=== PATIENT | female | born 1960 | race Caucasian/White ===

== ENCOUNTER → 2018-12-08 | Outpatient (CLI) | payer OTHER ==
[2018-12-10 15:07] LABS: HPV 16 Negative (Negative); HPV 18 Negative (Negative); HPV OTHER HR TYPES Negative (Negative)
== END | disposition home or self-care (01) ==
LOC: LAB 19:37 → LAB SHORT 19:37
PROVIDERS: Physician Assistant
DX: Z12.4 Encounter for screening for malignant neoplasm of cervix (principal)
CPT/HCPCS: 87624; G0145

== ENCOUNTER 2019-01-30 08:06 | Day surgery (SDC) | payer OTHER | END 2019-01-30 23:01 | disposition home or self-care (01) | LOC: MOI US 08:06 → MOI MAM 08:30 → MOI US 23:01 | DX: C50.911 Malignant neoplasm of unspecified site of right female breast (principal); Z17.0 Estrogen receptor positive status [ER+] | CPT/HCPCS: 19083; 77065; 88305; 88342; 88360; A4648 ==

== ENCOUNTER 2019-09-20 18:47 | Emergency (ER) | payer OTHER ==
[~2019-09-20] VITALS: Ht 167.6 cm; Wt 78.9 kg
[~2019-09-20 18:47] MED LIST: ADVIL100 MG PO; ATOR10 PO; Advil Pm Liqui1 EACH PO; BIOTIN2500 MCG PO; CENTRUM SILVER PO; CHOL10002 PO; MELO7.5 PO; MYRBETRIQ25 MG PO; Neurontin 300300 MG PO; OMEPRAZOLE20 MG PO; Prozac20 MG PO; VITAMIN B122500 MC1 PO
[2019-09-20] MEDS ORDERED: Crutch1 EACH MISC (20:05)
[2019-09-20] MEDS ORDERED: Norco 5-325 Ta1 EACH PO (20:05)
== END 2019-09-20 20:25 | disposition home or self-care (01) ==
LOC: ER 18:47
DX: S80.01XA Contusion of right knee, initial encounter (principal); K21.9 Gastro-esophageal reflux disease without esophagitis; E78.5 Hyperlipidemia, unspecified; Z88.2 Allergy status to sulfonamides; Z79.899 Other long term (current) drug therapy; Z87.891 Personal history of nicotine dependence; W18.40XA Slipping, tripping and stumbling without falling, unspecified, initial encounter
CPT/HCPCS: 29505; 73562-RT; 99283-25

== ENCOUNTER 2020-07-27 22:07 | Emergency (ER) | payer OTHER ==
[~2020-07-27] VITALS: Ht 167.6 cm; Wt 74.4 kg
[~2020-07-27 22:07] MED LIST changes: +Crutch1 EACH MISC; +Norco 5-325 Ta1 EACH PO
[2020-07-27 23:41] LABS: BASOPHILS ABSOLUTE AUTO 0.05 K/mm3 (0.00-0.23); BASOPHILS PERCENT AUTO 0 % (0-2); EOSINOPHILS ABSOLUTE AUTO 0.11 K/mm3 (0.00-0.68); EOSINOPHILS PERCENT AUTO 1 % (0-6); Hematocrit 39.1 % (33.0-51.0); IMMATURE GRAN ABSOLUTE AUTO 0.08 K/mm3 (0.00-0.10); IMMATURE GRAN PERCENT AUTO 1 % (0-1); LYMPHOCYTES ABSOLUTE AUTO 1.44 K/mm3 (0.84-5.20); LYMPHOCYTES PERCENT AUTO 11 % (21-46); MONOCYTES ABSOLUTE AUTO 1.47 K/mm3 (0.16-1.47); MONOCYTES PERCENT AUTO 11 % (4-13); Mean Corpuscular HGB 29.1 pg (26.0-34.0); Mean Corpuscular HGB Conc 33.2 g/dL (31.5-36.5); Mean Corpuscular Volume 88 fL (80-100); Mean Platelet Volume 9.6 fL (9.1-12.4); NEUTROPHILS ABSOLUTE AUTO 10.46 K/mm3 (1.96-9.15); NEUTROPHILS PERCENT AUTO 77 % (41-73); Platelet Count 261 K/mm3 (150-400); RDW Coefficient Variation 12.3 % (11.7-14.2); RDW Standard Deviation 39.6 fL (35.1-46.3); Red Blood Cell Count 4.47 M/mm3 (3.80-5.20); White Blood Cell Count 13.61 K/mm3 (4.00-11.30)
[2020-07-28 00:08] LABS: Alanine Aminotransfer (ALT/SGP 19 U/L (12-78); Albumin, Blood 3.1 g/dL (3.4-5.0); Albumin/Globulin Ratio 0.7 (0.8-1.8); Alk Phos 100 U/L (50-136); Anion Gap 11 mmol/L (6-16); Aspartate Aminotrans (AST/SGOT 11 U/L (12-37); Bilirubin, Total 0.5 mg/dL (0.1-1.0); Blood Urea Nitrogen 11 mg/dL (8-24); CO2, Blood 24 mmol/L (21-32); Calcium, Blood 9.5 mg/dL (8.5-10.1); Chloride, Blood 98 mmol/L (98-108); Globulin, Blood 4.7 g/dL (2.2-4.0); Glomerular Filtration Rate >60 (60-); Glucose, Blood 99 mg/dL (70-99); Potassium, Blood 3.3 mmol/L (3.5-5.5); Sodium, Blood 133 mmol/L (136-145); Total Protein, Blood 7.8 g/dL (6.4-8.2)
== END 2020-07-28 01:16 | disposition home or self-care (01) ==
LOC: ER 22:07
PROVIDERS: Emergency Medicine
DX: G89.18 Other acute postprocedural pain (principal); M79.605 Pain in left leg; R20.0 Anesthesia of skin; R20.2 Paresthesia of skin; K21.9 Gastro-esophageal reflux disease without esophagitis; E78.5 Hyperlipidemia, unspecified; Z88.2 Allergy status to sulfonamides; Z79.899 Other long term (current) drug therapy; Z87.891 Personal history of nicotine dependence
CPT/HCPCS: 36415; 80053; 83605; 85025; 96374; 96375; 96376; 99283-25; J1100; J1170; J2405

== ENCOUNTER 2020-08-04 11:16 | Inpatient (IN) | payer OTHER ==
[~2020-08-04] VITALS: Ht 167.6 cm; Wt 75.5 kg
[~2020-08-04 11:16] MED LIST changes: -ATOR10 PO; +ATOR20 PO; -CENTRUM SILVER PO; +GABA300 PO; +MULTI VITAMIN1 EACH PO; -Neurontin 300300 MG PO
[2020-08-04 12:27] LABS: BASOPHILS ABSOLUTE AUTO 0.07 K/mm3 (0.00-0.23); BASOPHILS PERCENT AUTO 1 % (0-2); EOSINOPHILS ABSOLUTE AUTO 0.02 K/mm3 (0.00-0.68); EOSINOPHILS PERCENT AUTO 0 % (0-6); Hematocrit 35.6 % (33.0-51.0); Hemoglobin 11.6 g/dL (11.5-16.0); IMMATURE GRAN PERCENT AUTO 3 % (0-1); LYMPHOCYTES ABSOLUTE AUTO 0.99 K/mm3 (0.84-5.20); LYMPHOCYTES PERCENT AUTO 10 % (21-46); MONOCYTES ABSOLUTE AUTO 0.52 K/mm3 (0.16-1.47); MONOCYTES PERCENT AUTO 5 % (4-13); Mean Corpuscular HGB 28.9 pg (26.0-34.0); Mean Corpuscular HGB Conc 32.6 g/dL (31.5-36.5); Mean Corpuscular Volume 89 fL (80-100); NEUTROPHILS PERCENT AUTO 81 % (41-73); RDW Standard Deviation 42.5 fL (35.1-46.3); Red Blood Cell Count 4.01 M/mm3 (3.80-5.20)
[2020-08-04 12:38] LABS: Mean Platelet Volume 8.8 fL (9.1-12.4); Platelet Count 502 K/mm3 (150-400)
[2020-08-04 12:49] LABS: Alanine Aminotransfer (ALT/SGP 26 U/L (12-78); Albumin/Globulin Ratio 0.7 (0.8-1.8); Alk Phos 98 U/L (50-136); Anion Gap 8 mmol/L (6-16); Aspartate Aminotrans (AST/SGOT 22 U/L (12-37); Bilirubin, Total 0.3 mg/dL (0.1-1.0); Blood Urea Nitrogen 14 mg/dL (8-24); CO2, Blood 25 mmol/L (21-32); Calcium, Blood 9.5 mg/dL (8.5-10.1); Chloride, Blood 108 mmol/L (98-108); Creatinine, Blood 0.45 mg/dL (0.40-1.00); Globulin, Blood 4.2 g/dL (2.2-4.0); Glomerular Filtration Rate >60 (60-); Glucose, Blood 129 mg/dL (70-99); Potassium, Blood 3.3 mmol/L (3.5-5.5); Sodium, Blood 141 mmol/L (136-145); Total Protein, Blood 7.2 g/dL (6.4-8.2)
[2020-08-04] MEDS ORDERED: ANAS1 PO (16:21)
[2020-08-04] MEDS ORDERED: VITAMIN D5000 UNIT PO (16:23)
[2020-08-04] MEDS ORDERED: CALCIUM CARBON650 MG PO (16:23)
[2020-08-04] MEDS ORDERED: CYAN1000I IM (16:23)
--- NOTE | 2020-08-04 18:43 | NUR ---
182 RECEIVED PT TO 343 VIA GURNEY FROM ER. SLIDE TX TO BED D/T ABD PAIN AND NAUSEA. RECEIVED REPORT FROM JOSSELYN XIE; PT TO ER D/T INTRACTABLE N/V. PT FOUND TO HAVE LLE DVT, ILEUS, AND HYPOKALEMIA. PT HAD RECENT BACK SX 2 WEEKS AGO. PT GIVEN IV FENTANYL AND ZOFRAN X2 IN ER. PT LATER GIVEN REGLAN WHICH WAS REPORTED TO BE MORE EFFECTIVE FOR NAUSEA. CT OF ABD ORDERED IN ER. PT GIVEN PO VALIUM FOR TEST, BUT REPORTED THAT SHE VOMITED IT UP. PT THEN REFUSED TO HAVE CT. JOSSELYN XIE, UNABLE TO GIVE REGLAN AGAIN AT THAT TIME IN ORDER TO ADMIN ANOTHER VALIUM. PT THEN SENT TO FLOOR. PHARMACY CALLED FOR PT WT, PRIOR TO PT COMING TO . WT DOCUMENTED IN CHART WHEN PT ARRIVED. PT MOANING ALL THE TIME WHILE BEING ADMITTED; NOW RESTING QUIETLY ON RT SIDE WITH IVF'S INFUSING PER EMAR. CALL LT IN REACH. WILL REPORT TO ONCOMING RN. THIS TIME
[2020-08-04 19:37] LABS: Source, Urine Clean Catch
[2020-08-04 19:42] LABS: Appearance, Urine Clear (Clear); Bilirubin, Urine Neg (Neg); Blood, Urine 3+ (Neg); Color, Urine Yellow (P-Yellow); Glucose Qualitative, Urine Neg (Neg); Ketones, Urine 1+ (Neg); Leukocyte Esterase, Urine Neg (Neg); Nitrite, Urine Neg (Neg); Protein, Urine Neg (Neg); Urobilinogen, Urine NORM (Normal)
[2020-08-04 20:09] LABS: Bacteria Not Seen /hpf; Squamous Epithelial Cells Few /hpf (Few); White Blood Cells, Urine Not Seen /hpf (0-5)
--- NOTE | 2020-08-05 03:02 | NUR ---
PHYSICIAN COMMUNICATION CONTACTED MANAGER RN PHYSICIAN, DR GROSS, TO NOTIFY HIM THAT THE PATIENT HAD AN ORDER FOR 10MG IV Q4 PRN BUT THAT THE ADMITING DOCTOR HAD NOTED IN THE H&P THAT SHE HAD INTENDED FOR THE PATIENT TO BE ORDERED 4 MG OF MORPHINE Q4 HOURS INSTEAD. DR GROSS SAID TO CHANGE THE ORDER TO THE INTENDED DOSAGE.
[2020-08-05 05:14] LABS: BASOPHILS ABSOLUTE AUTO 0.07 K/mm3 (0.00-0.23); BASOPHILS PERCENT AUTO 1 % (0-2); EOSINOPHILS ABSOLUTE AUTO 0.05 K/mm3 (0.00-0.68); EOSINOPHILS PERCENT AUTO 0 % (0-6); Hematocrit 32.2 % (33.0-51.0); Hemoglobin 10.4 g/dL (11.5-16.0); IMMATURE GRAN ABSOLUTE AUTO 0.21 K/mm3 (0.00-0.10); IMMATURE GRAN PERCENT AUTO 2 % (0-1); LYMPHOCYTES ABSOLUTE AUTO 1.72 K/mm3 (0.84-5.20); LYMPHOCYTES PERCENT AUTO 15 % (21-46); MONOCYTES PERCENT AUTO 9 % (4-13); Mean Corpuscular HGB 28.9 pg (26.0-34.0); Mean Corpuscular HGB Conc 32.3 g/dL (31.5-36.5); Mean Corpuscular Volume 89 fL (80-100); Mean Platelet Volume 8.4 fL (9.1-12.4); NEUTROPHILS ABSOLUTE AUTO 8.64 K/mm3 (1.96-9.15); NEUTROPHILS PERCENT AUTO 73 % (41-73); Platelet Count 486 K/mm3 (150-400); RDW Coefficient Variation 13.5 % (11.7-14.2); White Blood Cell Count 11.79 K/mm3 (4.00-11.30)
[2020-08-05 05:38] LABS: Alanine Aminotransfer (ALT/SGP 22 U/L (12-78); Albumin, Blood 2.8 g/dL (3.4-5.0); Albumin/Globulin Ratio 0.8 (0.8-1.8); Alk Phos 85 U/L (50-136); Anion Gap 5 mmol/L (6-16); Aspartate Aminotrans (AST/SGOT 17 U/L (12-37); Bilirubin, Total 0.2 mg/dL (0.1-1.0); Blood Urea Nitrogen 7 mg/dL (8-24); Bun/Creatinine Ratio 16.2 (12.0-20.0); CO2, Blood 27 mmol/L (21-32); Chloride, Blood 110 mmol/L (98-108); Creatinine, Blood 0.43 mg/dL (0.40-1.00); Globulin, Blood 3.5 g/dL (2.2-4.0); Glomerular Filtration Rate >60 (60-); Glucose, Blood 115 mg/dL (70-99); Potassium, Blood 3.2 mmol/L (3.5-5.5); Sodium, Blood 142 mmol/L (136-145); Total Protein, Blood 6.3 g/dL (6.4-8.2)
--- NOTE | 2020-08-05 06:37 | NUR ---
SHIFT SUMMARY PATIENT ALERT AND ORIENTED. SHE SPOKE AND INTERACTED VERY LITTLE WITH STAFF DUE TO THE LEVEL OF NAUSEA AND PAIN SHE WAS FEELING. PATIENT MEDICATED THREE TIMES FOR NAUSEA AND TWICE FOR PAIN PER EMAR. SHE REPORTED HAVING A HEADACHE AND STOMACH PAIN. BOWEL TONES PRESENT, JUST HYPOACTIVE. IV PATENT AND INFUSING. BED IN LOWEST POSITION WITH WHEELS LOCKED. CALL LIGHT WITHIN REACH. REPORT GIVEN TO ONCOMING RN.
--- NOTE | 2020-08-05 12:13 | NUR ---
PT MEDICATED FOR C/O NAUSEA. LATER PT C/O BLANCAS. DECLINED TYLENOL TO PRESENT. REQUESTED IV MORPHINE. PT REPORTED BLANCAS POSSIBLY R/T CAFFEINE W/D. PT VOIDING WELL, UP TO BSC INDEPENDENTLY. TO RM THIS AM. REQUESTED INFO R/T REORDERING CT SCAN THAT PT HAD REFUSED LAST NIGHT. DR HERNÁNDEZ NOTIFIED AND CAME TO RM TO TALK WITH PT AND . NEW ORDERS PLACED. PT RESTING QUIETLY, AT BS. CALL LT IN REACH.
[2020-08-05 17:41] LABS: Prothrombin Time Results 10.7 Sec (9.7-11.5)
--- NOTE | 2020-08-05 19:21 | NUR ---
SHIFT SUMMARY PT DOWN FOR CT OF ABD AND PELVIC; TOLERATED WELL. DR HERNÁNDEZ NOTIFIED OF CT COMPLETION. NEW ORDERS PLACED. CONSULT CALLED TO DR Williamson BY THIS RN. DR HERNÁNDEZ LATER CALLED TO CHECK ON CONSULT; UPDATE GIVEN THAT DR Williamson WAS ON HIS WAY DOWN FROM [place] TO SEE PT AND POSSIBLY DO PROCEDURE, PER RAFI XIE FROM [facility]. RAPID COVID ORDERED AND OBTAINED. PHARMACY CONSULT ORDERED TO START HEPARIN DRIP. PT INFORMED OF CONSULT AND POSSIBLE PROCEDURE. DR Williamson IN TO SEE PT AND DISCUSS PROCEDURE AFTER REVIEWING CT AND US RESULTS. PT AND AGREEABLE TO PROCEDURE. HEPARIN BOLUS ADMINISTERED AND DRIP STARTED PER PHARMACY. TO BE NOTIFIED WHEN PT GOING DOWN FOR PROCEDURE, BY ALLY RN. PT UP TO BSC WITH SBA R/T LINES. PT C/O ACID REFLUX DURING SHIFT REPORT; TO BE MEDICATED BY NOC RN. REPORT GIVEN TO ONCOMING RN. CALL LT IN REACH.
--- NOTE | 2020-08-05 20:37 | NUR ---
PT LEFT FLOOR ASSUMED CARE OF PT AT 1900. PT RECEIVED NEASEA MEDICINE. HEPRIN INFUSING. MOTORCYCLE MAKER CAME TO GET PT AT 2022. PT EDUCATED ON PROCEDURE. OF PT OMAR NOTIFED OF PT LEAVING. NUMBER IS [phone] AND WOULD LIKE TO BE CALLED AFTER PROCEDURE. EDUCATED ABOUT PT GOING TO PCU AFTER PROCEDURE.
--- NOTE | 2020-08-06 04:36 | NUR ---
SUMMARY CALLED AND RECIEVED REPORT FROM CARLOS XIE BEFORE GETTING PT FROM [facility]. RECIEVED PATIENT FROM [facility] @ 2219 REPORT FROM MONSE XIE. NO BLEEDING NOTICED AT FEMORAL OR POPLITEAL SITES. ALL SENSATION INTACT IN BLEs. PT LOG ROLLED ONTO BEDPAN. PT URINE BLOODY, HOSPITALIST NOTIFIED AND DR. RAMEY CONTACTED AT 2244 BY HOSPITALIST WHO REPORTED THIS WAS NORMAL. HOSPITALIST ALSO NOTIFIED OF PATIENT NAUSEA AND ORDER RECIEVED AND PT MEDICATED, SEE EMAR. CONTACTED PHARMACY AT 2251 TO CONFIRM AND RESTART HEPARIN. PT REPORTED 10/10 ABDOMINAL PAIN WHEN SHE ARRIVED FROM [facility], REPOSITIONED, HEAT PAD APPLIED, AND MEDICATED, SEE EMAR. PT 02 SATS IN THE UPPER 80s, PUT PATIENT ON 2L NC AND 02 IS NOW >95%. PT IS INCONTINENT AT TIMES. CALL LIGHT IN REACH, BED IN LOW POSITION. WILL CONTINUE TO MONITOR.
[2020-08-06 06:49] LABS: BASOPHILS ABSOLUTE AUTO 0.09 K/mm3 (0.00-0.23); BASOPHILS PERCENT AUTO 1 % (0-2); EOSINOPHILS ABSOLUTE AUTO 0.03 K/mm3 (0.00-0.68); EOSINOPHILS PERCENT AUTO 0 % (0-6); Hematocrit 33.4 % (33.0-51.0); Hemoglobin 10.9 g/dL (11.5-16.0); IMMATURE GRAN ABSOLUTE AUTO 0.14 K/mm3 (0.00-0.10); IMMATURE GRAN PERCENT AUTO 1 % (0-1); LYMPHOCYTES ABSOLUTE AUTO 2.01 K/mm3 (0.84-5.20); LYMPHOCYTES PERCENT AUTO 19 % (21-46); MONOCYTES ABSOLUTE AUTO 1.08 K/mm3 (0.16-1.47); MONOCYTES PERCENT AUTO 10 % (4-13); Mean Corpuscular HGB 29.1 pg (26.0-34.0); Mean Corpuscular HGB Conc 32.6 g/dL (31.5-36.5); Mean Corpuscular Volume 89 fL (80-100); Mean Platelet Volume 8.5 fL (9.1-12.4); NEUTROPHILS PERCENT AUTO 69 % (41-73); Platelet Count 419 K/mm3 (150-400); RDW Coefficient Variation 13.5 % (11.7-14.2); Red Blood Cell Count 3.75 M/mm3 (3.80-5.20); White Blood Cell Count 10.85 K/mm3 (4.00-11.30)
[2020-08-06 07:08] LABS: Alanine Aminotransfer (ALT/SGP 25 U/L (12-78); Albumin, Blood 2.9 g/dL (3.4-5.0); Albumin/Globulin Ratio 0.7 (0.8-1.8); Alk Phos 86 U/L (50-136); Anion Gap 8 mmol/L (6-16); Aspartate Aminotrans (AST/SGOT 37 U/L (12-37); Bilirubin, Total 0.5 mg/dL (0.1-1.0); Blood Urea Nitrogen 5 mg/dL (8-24); Bun/Creatinine Ratio 10.6 (12.0-20.0); CO2, Blood 29 mmol/L (21-32); Calcium, Blood 9.4 mg/dL (8.5-10.1); Chloride, Blood 102 mmol/L (98-108); Creatinine, Blood 0.47 mg/dL (0.40-1.00); Globulin, Blood 3.9 g/dL (2.2-4.0); Glomerular Filtration Rate >60 (60-); Glucose, Blood 113 mg/dL (70-99); Potassium, Blood 3.1 mmol/L (3.5-5.5); Sodium, Blood 139 mmol/L (136-145); Total Protein, Blood 6.8 g/dL (6.4-8.2)
--- NOTE | 2020-08-06 17:16 | NUR ---
SHIFT SUMMARY PT AXO, PLEASANT AND COOPERATIVE WITH CARE. PT MEDICATED FOR PAIN PER EMAR. TEMP 99.9, NURSE TO GIVE PT TYLENOL PER EMAR WITH LAST MED PASS OF SHIFT. PT EMESIS AFTER MORNING MEDICATIONS X2. SPOUSE STATES THAT HE SAW PILLS IN EMESIS. PT REMAINS INCONTINENT, REQUIRING ATTENDS CHANGES FREQUENTLY. BED IN LOW POSITION, CALL LIGHT WITHIN REACH.
[2020-08-06] MEDS ORDERED: TYLENOL PM PO (19:20)
--- NOTE | 2020-08-07 01:33 | NUR ---
PATIENT IS ALERT, ORIENTED AND COOPERATIVE WITH CARE. SHE IS INCONTINENT AND A 1 PERSON ASSIT WITH CARE. PATIENT PAIN HAS BEEN MAINLY IN HER BACK AND I HAVE HAD NO REPORTS OF N/V THIS SHIFT. THE PATIENT SAT UP ON THE SIDE OF THE BED TO TAKE MEDICTION. TOLERATING CLEAR LIQUID DIET WELL. TAGADERM DRESSING ON FEMORAL AND POPLITEAL SITES DRY AND INTACT. VSS, NO ACUTE CHANGES. CALL LIGHT IN REACH, WILL CONTINUE TO MONITOR.
--- NOTE | 2020-08-07 06:00 | NUR ---
SUMMARY PATIENT SLEPT WELL AFTER TYLENOL PM, WOKE UP WITH 10/10 BACK PAIN, MEDICATED, SEE EMAR. PT INCONTINENT OF BLADDER, BRIEF CHANGED. TALKED TO PATIENT ABOUT TRYIGN TO USE BEDPAN OR BEDSIDE COMMODE. VSS, NO ACUTE CHANGED. WILL CONTINUE TO MONITOR.
[2020-08-07 06:01] LABS: BASOPHILS ABSOLUTE AUTO 0.08 K/mm3 (0.00-0.23); BASOPHILS PERCENT AUTO 1 % (0-2); EOSINOPHILS PERCENT AUTO 2 % (0-6); Hematocrit 33.4 % (33.0-51.0); Hemoglobin 10.6 g/dL (11.5-16.0); IMMATURE GRAN ABSOLUTE AUTO 0.12 K/mm3 (0.00-0.10); IMMATURE GRAN PERCENT AUTO 1 % (0-1); LYMPHOCYTES ABSOLUTE AUTO 2.62 K/mm3 (0.84-5.20); LYMPHOCYTES PERCENT AUTO 31 % (21-46); MONOCYTES ABSOLUTE AUTO 1.04 K/mm3 (0.16-1.47); MONOCYTES PERCENT AUTO 12 % (4-13); Mean Corpuscular HGB 28.8 pg (26.0-34.0); Mean Corpuscular HGB Conc 31.7 g/dL (31.5-36.5); Mean Corpuscular Volume 91 fL (80-100); Mean Platelet Volume 8.4 fL (9.1-12.4); NEUTROPHILS ABSOLUTE AUTO 4.39 K/mm3 (1.96-9.15); NEUTROPHILS PERCENT AUTO 52 % (41-73); Platelet Count 329 K/mm3 (150-400); RDW Coefficient Variation 13.6 % (11.7-14.2); RDW Standard Deviation 45.1 fL (35.1-46.3); Red Blood Cell Count 3.68 M/mm3 (3.80-5.20); White Blood Cell Count 8.45 K/mm3 (4.00-11.30)
[2020-08-07 06:25] LABS: Alanine Aminotransfer (ALT/SGP 19 U/L (12-78); Albumin, Blood 2.6 g/dL (3.4-5.0); Albumin/Globulin Ratio 0.7 (0.8-1.8); Alk Phos 78 U/L (50-136); Anion Gap 7 mmol/L (6-16); Aspartate Aminotrans (AST/SGOT 21 U/L (12-37); Bilirubin, Total 0.4 mg/dL (0.1-1.0); Blood Urea Nitrogen 5 mg/dL (8-24); Bun/Creatinine Ratio 10.4 (12.0-20.0); CO2, Blood 28 mmol/L (21-32); Calcium, Blood 9.1 mg/dL (8.5-10.1); Chloride, Blood 105 mmol/L (98-108); Creatinine, Blood 0.48 mg/dL (0.40-1.00); Globulin, Blood 3.6 g/dL (2.2-4.0); Glomerular Filtration Rate >60 (60-); Glucose, Blood 117 mg/dL (70-99); Potassium, Blood 3.2 mmol/L (3.5-5.5); Sodium, Blood 140 mmol/L (136-145); Total Protein, Blood 6.2 g/dL (6.4-8.2)
--- NOTE | 2020-08-07 14:51 | NUR ---
PT USING BSC APPROPRIATELY, TOLERATING GETTING IN AND OUT OF BED WELL. PT CONTINUES TO REQUEST Q4H PAIN MEDICATION. DR HERNÁNDEZ IN TO SEE PT, DISCUSSED POSSIBLY ADDING PO PAIN MEDICATION. HEPARIN INFUSION DC'D AT 1235 TODAY. PT TRANSITIONED TO XARELTO PO. PT REQUESTS TO ADVANCE DIET, RECEIVES FULL LIQUID LUNCH, TOLERATING WELL AT THIS TIME. PT RESTING QUIETLY IN BED, CALL LIGHT WITHIN REACH.
[2020-08-08 04:57] LABS: BASOPHILS ABSOLUTE AUTO 0.06 K/mm3 (0.00-0.23); BASOPHILS PERCENT AUTO 1 % (0-2); EOSINOPHILS ABSOLUTE AUTO 0.27 K/mm3 (0.00-0.68); EOSINOPHILS PERCENT AUTO 4 % (0-6); Hematocrit 33.9 % (33.0-51.0); IMMATURE GRAN ABSOLUTE AUTO 0.11 K/mm3 (0.00-0.10); IMMATURE GRAN PERCENT AUTO 2 % (0-1); LYMPHOCYTES ABSOLUTE AUTO 1.79 K/mm3 (0.84-5.20); LYMPHOCYTES PERCENT AUTO 24 % (21-46); MONOCYTES ABSOLUTE AUTO 0.96 K/mm3 (0.16-1.47); MONOCYTES PERCENT AUTO 13 % (4-13); Mean Corpuscular HGB Conc 32.4 g/dL (31.5-36.5); Mean Corpuscular Volume 89 fL (80-100); Mean Platelet Volume 8.5 fL (9.1-12.4); NEUTROPHILS ABSOLUTE AUTO 4.24 K/mm3 (1.96-9.15); NEUTROPHILS PERCENT AUTO 57 % (41-73); Platelet Count 324 K/mm3 (150-400); RDW Coefficient Variation 13.5 % (11.7-14.2); Red Blood Cell Count 3.79 M/mm3 (3.80-5.20); White Blood Cell Count 7.43 K/mm3 (4.00-11.30)
--- NOTE | 2020-08-08 05:11 | NUR ---
SUMMARY PATIENT ALERT AND ORIENTED. REPOSITIONS INDEPENDENTLY IN BED AND IS A SBA TO THE COMMODE. SLEPT THROUGH MOST THE NIGHT OTHER THAN WAKING FROM BACK PAIN, MEDICATED SEE EMAR. VSS, NO ACUTE CHANGES. CALL LIGHT IN REACH, WILL CONTINUE TO MONITOR.
[2020-08-08 05:14] LABS: Alanine Aminotransfer (ALT/SGP 20 U/L (12-78); Albumin, Blood 2.7 g/dL (3.4-5.0); Albumin/Globulin Ratio 0.7 (0.8-1.8); Alk Phos 79 U/L (50-136); Anion Gap 4 mmol/L (6-16); Aspartate Aminotrans (AST/SGOT 15 U/L (12-37); Bilirubin, Total 0.3 mg/dL (0.1-1.0); Blood Urea Nitrogen 6 mg/dL (8-24); Bun/Creatinine Ratio 10.6 (12.0-20.0); CO2, Blood 33 mmol/L (21-32); Calcium, Blood 9.4 mg/dL (8.5-10.1); Chloride, Blood 104 mmol/L (98-108); Creatinine, Blood 0.57 mg/dL (0.40-1.00); Globulin, Blood 3.7 g/dL (2.2-4.0); Glomerular Filtration Rate >60 (60-); Glucose, Blood 99 mg/dL (70-99); Potassium, Blood 3.4 mmol/L (3.5-5.5); Sodium, Blood 141 mmol/L (136-145); Total Protein, Blood 6.4 g/dL (6.4-8.2)
--- NOTE | 2020-08-08 17:15 | NUR ---
TRANSFER NOTE/SHIFT SUMMARY PT TRANSFERRED FROM PCU TO MEDICAL FLOOR APPROX 1715. PT AxOx4. INDEPENDENT IN ROOM. PT C/O PAIN IN BACK AND HIPS AT 6/10. MEDICATED WITH MORPHINE AT 1637. PT GIVEN EXTRA PILLOWS AND HOT PAD FOR RELIEF. SOFT DINNER SERVED- FIRST MEAL AFTER ADVANCING FROM LIQUIDS. PT TOLERATING WELL. PLEANSANT AND COOPERATIVE WITH CARE. CALLS APPROPRIATELY. REVIEWED PCU NURSE'S SHIFT ASSESSMENT FROM TODAY AND AGREE WITH HER DOCUMENTATION. VITALS REVIEWED. SURGICAL SITES ASSESSED ALL APPEAR TO BE WNL. PT ORIENTED TO ROOM. CALL LIGHT IN REACH. DENIES ANY NEEDS AT THIS TIME.
--- NOTE | 2020-08-09 05:11 | NUR ---
SHIFT SUMMARY AOX4. VSS. REPORTS CONSTANT 8-10/10 PAIN IN R HIP/BACK & ALLOVER BODY, MEDICATED c IV MORPHINE PER ORDERS. PT ASKS FREQUENTLY "IS IT TIME FOR MY PAIN MEDS YET." DENIES N/V, DYSPNEA. HAD STENT PLACED IN L LEG FOR DVT ON 08/05. PT DENIES ANY PAIN, REDNESS, SWELLING & TEGADERMS FOR ACCESS ARE C/D/I. PT ABLE TO IND TRANSFER SELF IN ROOM. CALL LIGHT IN REACH.
--- NOTE | 2020-08-09 17:53 | NUR ---
SHIFT SUMMARY PT AxOx4. PLEASANT AND COOPERATIVE WITH CARE. C/O HIGH PAIN IN BACK, R HIP/BUTTOCKS T/O DAY. MEDICATED PER EMAR. DR CERRATO CHANGED PAIN MEDS TO PO TODAY. PT REPORTS LESS COVERAGE WITH PO MEDICATION. PT UNDERSTANDS SHE HAS TO TRANSITION TO PO MEDICATION FOR DC. TEARFUL ON AND OFF WHEN TALKING ABOUT CHRONIC PAIN AND MULTIPLE UNSUCCESSFUL BACK SURGERIES. PT REPORTS SHE HAS NOT HAD PROPER BM FOR A FEW DAYS- JUST A SMEAR OR VERY SMALL BM YESTERDAY. DR CERRATO CHANGED ENULOSE ORDER FROM PRN TO TO SCHEDULED. PLAN TO DC TOMORROW AFTER PT HAS A BM. PT/OT ASSESSMENT TODAY, EVAL SUGGESTS NO FURTHER TX NEEDED. PT INDEPENDENT IN THE ROOM. TOOK WALK IN HALLS WITH NURSE TODAY. VITALS REVIEWED. PT DENIES ANY NEEDS AT THIS TIME. CALL LIGHT IN REACH.
--- NOTE | 2020-08-10 01:16 | NUR ---
IV ACCESS *LATE ENTRY* AROUND 2200, PT REPORTS IV IN R HAND IS VERY TENDER, STARTS CRYING & BECOMING TEARFUL. I ATTEMPTED TO PLACE NEW IV, WAS NOT SUCCESSFUL. PT ASKED IF WE COULD LEAVE IV OUT SINCE SHE WAS POSSIBLY GOING HOME IN AM. PT REFUSED PM IV PEPCID, STATING "IT DOESN'T WORK, I DON'T WANT IT". INFORMED DR GROSS & HE ORDERED NO IV ACCESS. WCTM.
--- NOTE | 2020-08-10 05:44 | NUR ---
SHIFT SUMMARY AOX4. TEARFUL/EMOTIONAL DURING PM MED PASS, REPORTS HAVING DIFFICULTY COPING c HEALTH, TALKS ABOUT HER DX OF CANCER, THE "MANY BACK SURGERIES" & HER FATHER DYING. APPEARS DEPRESSED. DENIES N/V. TOLERATING DIET. HAD 2 LIQUID/LOOSE BM THIS SHIFT, REFUSED HER PM LACTALOSE BECAUSE OF LOOSE STOOLS. REPORTS 8-07/09 R HIP/BACK/SCIATICA PAIN, "FEELS LIKE A HOT POKER" MEDICATED 2X c 5MG PO OXYCODONE-PT STATES VERY LITTLE TO NO RELIEF c THIS PAIN MEDICATION, AWARE SHE NEEDS TO TAKE PO PAIN MEDICATION TO DC HOME. IND IN ROOM. CALL LIGHT IN REACH.
[2020-08-10] MEDS ORDERED: SOMA PO (14:58)
[2020-08-10] MEDS ORDERED: OXAYDO5 M1 PO (14:59)
[2020-08-10] MEDS ORDERED: POTCHL20ER PO (15:01)
[2020-08-10] MEDS ORDERED: DOCU100 PO (15:01)
[2020-08-10] MEDS ORDERED: XARELTO20 MG PO (15:02)
[2020-08-10 15:05] LABS: Anion Gap 6 mmol/L (6-16); Blood Urea Nitrogen 6 mg/dL (8-24); Bun/Creatinine Ratio 10.9 (12.0-20.0); CO2, Blood 26 mmol/L (21-32); Calcium, Blood 9.3 mg/dL (8.5-10.1); Chloride, Blood 105 mmol/L (98-108); Creatinine, Blood 0.55 mg/dL (0.40-1.00); Glomerular Filtration Rate >60 (60-); Glucose, Blood 116 mg/dL (70-99); Potassium, Blood 3.8 mmol/L (3.5-5.5); Sodium, Blood 137 mmol/L (136-145)
--- NOTE | 2020-08-10 16:15 | NUR ---
PT DISCHARGED PT DISCHARGED AT 1610. NO CHANGES IN ASSESSMENT PRIOR TO DC. PT EDUCATED ON DC INSTRUCTIONS, INCLUDING NEW MEDS, MED CHANGES, AND FOLLOW UP APPONTMENTS. PT GIVEN HARD SCRIPT FOR OXYCODONE DO TO LACK OF TABLETS AT HOME. PT EDUCATED ON THE IMPORTANCE OF FOLLOWING THE PRESCRIPTION AND NOT TO TAKE MORE THAN PRESCRIBED. PT STATES SHE UNDERSTANDS. PT FURTHER EDUCATED THAT IF PAIN IS UNMANAGED TO REACH OUT TO HER PRIMARY CARE PHYSICIAN OR TO RETURN TO ER. PT AGAIN STATES SHE UNDERSTANDS. PT WHEELED OUT BY AIDE AND DRIVEN HOME BY .
== END 2020-08-10 16:15 | disposition home or self-care (01) | DRG 253 ==
LOC: ER 11:16 → MEDS 17:26 → PCU 08-05 22:32 → MEDS 08-08 17:09
PROVIDERS: Emergency Medicine; Family Medicine; Internal Medicine; Radiology Diagnostic Radiology; ADMIT Family Medicine
PROC: 047D34Z Dilation of Left Common Iliac Artery with Drug-eluting Intraluminal Device, Percutaneous Approach (ICD-10-PCS; principal; 2020-08-05)
PROC: 04FD3Z0 Fragmentation of Left Common Iliac Artery, Percutaneous Approach, Ultrasonic (ICD-10-PCS; 2020-08-05)
PROC: B51CYZA Fluoroscopy of Left Lower Extremity Veins using Other Contrast, Guidance (ICD-10-PCS; 2020-08-05)
PROC: 06H03DZ Insertion of Intraluminal Device into Inferior Vena Cava, Percutaneous Approach (ICD-10-PCS; 2020-08-05)
DX: I82.412 Acute embolism and thrombosis of left femoral vein (principal); K56.7 Ileus, unspecified; E87.6 Hypokalemia; Z20.828 Contact with and (suspected) exposure to other viral communicable diseases; T50.7X5A Adverse effect of analeptics and opioid receptor antagonists, initial encounter; E78.5 Hyperlipidemia, unspecified; K21.9 Gastro-esophageal reflux disease without esophagitis; R40.2412 Glasgow coma scale score 13-15, at arrival to emergency department; Z85.3 Personal history of malignant neoplasm of breast; Z87.891 Personal history of nicotine dependence; Z88.2 Allergy status to sulfonamides; Z79.811 Long term (current) use of aromatase inhibitors; Z79.899 Other long term (current) drug therapy; Z98.890 Other specified postprocedural states; Z79.1 Long term (current) use of non-steroidal anti-inflammatories (NSAID)
CPT/HCPCS: 36415; 37191; 37238; 37252; 72132; 74022; 74177; 75820; 75825; 76937; 80048; 80053; 81001; 83605; 83690; 83735; 85025; 85610; 85730; 93971; 96361; 96365; 96366; 96372; 96375; 96376; 97165; 99152; 99153; 99285-25; A9270; A9270-GY; C1725; C1757; C1769; C1876; C1880; C1887; C1894; G0378; J1200; J1630; J1644; J1650; J2060; J2250; J2270; J2405; J2550; J2765; J3010; J3480; J7030; J7050; Q9967; U0004

== ENCOUNTER 2021-02-08 07:54 | Day surgery (SDC) | payer OTHER ==
[~2021-02-08] VITALS: Ht 167.6 cm; Wt 73.2 kg
[~2021-02-08 07:54] MED LIST changes: +ANAS1 PO; +CALCIUM CARBON650 MG PO; +CYAN1000I IM; +DOCU100 PO; +OXAYDO5 M1 PO; +POTCHL20ER PO; +SOMA PO; +TYLENOL PM PO; +VITAMIN D5000 UNIT PO; +XARELTO20 MG PO
[2021-02-08] MEDS ORDERED: METAMUCIL POWD575 GM PO (09:09)
[2021-02-08] MEDS ORDERED: CALCIUM CIT 311 EACH PO (09:10)
[2021-02-08] MEDS ORDERED: Percocet 5-3251 EACH PO (09:11)
--- NOTE | 2021-02-08 14:55 | NUR ---
PATIENT RETURNED TO [facility] ROOM. RESTING BUT AWAKENS EASILY. TRACIE ADAMSUB TECH. PULLED CATHETER FROM RIGHT IJ. MANUAL PRESSURE HELD. DRESSING APPLIED. NO SWEELING. SITE SOFT AND NONTENDER. LEFT VENOUS SITE BEHIND LEFT KNEE DRESSING D&I AND STABLE. DRESSING TO LEFT PEDAL SITE D&I, SOFT AND NONTENDER.
--- NOTE | 2021-02-08 15:05 | NUR ---
DR RAMEY IN TO SEE PATIENT, BUT PATIENT SLEEPING.
--- NOTE | 2021-02-08 16:45 | NUR ---
DR. RAMEY IN TO SPEAK TO PATIENT ABOUT THIS PROCEDURE AND THE NEXT PROCEDURE.
--- NOTE | 2021-02-08 17:59 | NUR ---
PATIENT VERBALIZED UNDERSTAND OF DISCHARGE INSTRUCTIONS AND PRECAUTIONS. ACCESS SITES REMAIN SOFT AND NONTENDER AND DRESSING D&I. PATIENT AMBULATED TO BATHROOM TO VOID. SAT UP IN BED TO EAT DINNER WITHOUT DIFFICULTY. DRESSED BY SELF. PATIENT TRANSFERRED TO CAR VIA WHEELCHAIR BY KARINA XIE. NO FURTHER QUESTIONS
== END 2021-02-08 17:00 | disposition home or self-care (01) ==
LOC: MHTC 07:54
DX: I82.422 Acute embolism and thrombosis of left iliac vein (principal); E78.5 Hyperlipidemia, unspecified; Z88.2 Allergy status to sulfonamides; Z79.899 Other long term (current) drug therapy
CPT/HCPCS: 36005; 37193; 75820; 75825; 76937; 76998; 99152; 99153; C1769; C1887; C1894; J1644; J2060; J2250; J3010; J7030; J7040; Q9967

== ENCOUNTER 2021-02-28 06:17 | Day surgery (SDC) | payer OTHER ==
[~2021-02-28] VITALS: Ht 167.6 cm; Wt 73.0 kg
[~2021-02-28 06:17] MED LIST changes: +CALCIUM CIT 311 EACH PO; +METAMUCIL POWD575 GM PO; +Percocet 5-3251 EACH PO
[2021-02-28 07:27] LABS: BASOPHILS ABSOLUTE AUTO 0.05 K/mm3 (0.00-0.23); BASOPHILS PERCENT AUTO 1 % (0-2); EOSINOPHILS ABSOLUTE AUTO 0.21 K/mm3 (0.00-0.68); EOSINOPHILS PERCENT AUTO 4 % (0-6); Hematocrit 40.3 % (33.0-51.0); Hemoglobin 13.1 g/dL (11.5-16.0); IMMATURE GRAN ABSOLUTE AUTO 0.02 K/mm3 (0.00-0.10); IMMATURE GRAN PERCENT AUTO 0 % (0-1); LYMPHOCYTES ABSOLUTE AUTO 1.77 K/mm3 (0.84-5.20); LYMPHOCYTES PERCENT AUTO 36 % (21-46); MONOCYTES ABSOLUTE AUTO 0.52 K/mm3 (0.16-1.47); MONOCYTES PERCENT AUTO 10 % (4-13); Mean Corpuscular HGB 28.4 pg (26.0-34.0); Mean Corpuscular HGB Conc 32.5 g/dL (31.5-36.5); Mean Corpuscular Volume 87 fL (80-100); Mean Platelet Volume 9.5 fL (9.1-12.4); NEUTROPHILS ABSOLUTE AUTO 2.41 K/mm3 (1.96-9.15); NEUTROPHILS PERCENT AUTO 49 % (41-73); Platelet Count 224 K/mm3 (150-400); RDW Coefficient Variation 14.5 % (11.7-14.2); RDW Standard Deviation 46.5 fL (35.1-46.3); Red Blood Cell Count 4.62 M/mm3 (3.80-5.20); White Blood Cell Count 4.98 K/mm3 (4.00-11.30)
[2021-02-28 07:34] LABS: Anion Gap 3 mmol/L (6-16); Blood Urea Nitrogen 13 mg/dL (8-24); Bun/Creatinine Ratio 20.1 (12.0-20.0); CO2, Blood 29 mmol/L (21-32); Chloride, Blood 107 mmol/L (98-108); Creatinine, Blood 0.65 mg/dL (0.40-1.00); Glomerular Filtration Rate >60 (60-); Glucose, Blood 104 mg/dL (70-99); Potassium, Blood 3.6 mmol/L (3.5-5.5); Sodium, Blood 139 mmol/L (136-145)
[2021-02-28 07:37] LABS: International Normalized Ratio 1.06; Prothrombin Time Results 11.4 Sec (9.7-11.5)
--- NOTE | 2021-02-28 14:50 | NUR ---
PT VERBALIZES UNDERSTANDING WRITTEN AND VERBAL ORDERS. PT DENIES QUESTIONS OR CONCERNS. VSS. NADN. SITES REMAIN CLEAR.
--- NOTE | 2021-02-28 15:13 | NUR ---
PT ASSISTED TO RESTROOM, WHILE ATTEMPTING TO CHANGE INTO CLOTHING, NURSE NOTED L FEM VEIN BLEEDING. PT BROUGHT BACK TO [facility], LYING FLAT, AND PRESSURE APPLIED TO AREA. MANUAL PRESSURE HELD X 10 MIN. PT NO LONGER BLEEDING, SOFT, AND NON-TENDER AT SITE. ALL OTHER SITES REMAIN STABEL. VSS. NADN. WILL CONTINUE TO MONITOR PT.
--- NOTE | 2021-02-28 15:51 | NUR ---
DR RAMEY TO ROOM DISCUSS PLAN OF CARE. PT SITES REMAIN SOFT AND CLEAR. PER DR RAMEY ADMINISTER FENTANYL 25MCG NOW FOR LLE/ABDOMINAL PAIN. VSS.
--- NOTE | 2021-02-28 15:56 | NUR ---
PT MEDICATED PER ORDERS, TOLERATES WELL. VSS. WILL CONTINUE TO MONTIOR.
--- NOTE | 2021-02-28 16:22 | NUR ---
PT S/O OMAR TO BEDSIDE. DR RAMEY SPEAKING WITH PT AND S/O REGARDING PLAN OF CARE. VSS. L FEM VEIN REMAINS CLEAR, NO BLEEDING, SOFT- NON-TENDER. PT REPORTS LESS ABDOMINAL AND LEG PAIN. IV DC'D. CATH INTACT. PRESSURE DSG APPLIED. PT DC TO HOME VIA WC BY NURSE AND S/O.
== END 2021-02-28 16:25 | disposition home or self-care (01) ==
LOC: MHTC 06:17
PROVIDERS: Radiology Diagnostic Radiology
DX: I82.422 Acute embolism and thrombosis of left iliac vein (principal); T82.858A Stenosis of other vascular prosthetic devices, implants and grafts, initial encounter; E78.5 Hyperlipidemia, unspecified; Z88.2 Allergy status to sulfonamides; Z85.3 Personal history of malignant neoplasm of breast; Z87.891 Personal history of nicotine dependence; Z98.1 Arthrodesis status; Z95.820 Peripheral vascular angioplasty status with implants and grafts; Y71.8 Miscellaneous cardiovascular devices associated with adverse incidents, not elsewhere classified
CPT/HCPCS: 36005; 37187; 37238; 37248; 75820; 75825; 76937; 76998; 80048; 85025; 85610; 99152; 99153; C1725; C1757; C1769; C1773; C1876; C1887; C1894; J1644; J2060; J2250; J3010; J7030; J7040; J7050; Q9967

== ENCOUNTER 2021-03-01 04:36 | Emergency (ER) | payer OTHER ==
[~2021-03-01] VITALS: Ht 167.6 cm; Wt 72.6 kg
[2021-03-01 04:50] LABS: Calcium, Ionized (POC) 1.12 mmol/L (1.10-1.46); Chloride (POC) 101 mmol/L (98-108); Creatinine (POC) 0.5 mg/dL (0.6-1.0); Glucose (ISTAT POC) 177 mg/dL (70-99); Hemoglobin (POC) 14.6 g/dL (12.0-16.0); Potassium (POC) 3.5 mmol/L (3.5-5.5); Sodium (POC) 135 mmol/L (135-148); Total CO2 (POC) 21 mmol/L (21-32)
[2021-03-01 04:52] LABS: BASOPHILS ABSOLUTE AUTO 0.05 K/mm3 (0.00-0.23); BASOPHILS PERCENT AUTO 0 % (0-2); EOSINOPHILS ABSOLUTE AUTO 0.07 K/mm3 (0.00-0.68); EOSINOPHILS PERCENT AUTO 1 % (0-6); Hematocrit 39.8 % (33.0-51.0); Hemoglobin 13.5 g/dL (11.5-16.0); IMMATURE GRAN ABSOLUTE AUTO 0.06 K/mm3 (0.00-0.10); IMMATURE GRAN PERCENT AUTO 0 % (0-1); LYMPHOCYTES ABSOLUTE AUTO 2.27 K/mm3 (0.84-5.20); LYMPHOCYTES PERCENT AUTO 16 % (21-46); MONOCYTES ABSOLUTE AUTO 1.13 K/mm3 (0.16-1.47); MONOCYTES PERCENT AUTO 8 % (4-13); Mean Corpuscular HGB 28.9 pg (26.0-34.0); Mean Corpuscular HGB Conc 33.9 g/dL (31.5-36.5); Mean Corpuscular Volume 85 fL (80-100); NEUTROPHILS ABSOLUTE AUTO 10.63 K/mm3 (1.96-9.15); NEUTROPHILS PERCENT AUTO 75 % (41-73); Platelet Count 239 K/mm3 (150-400); RDW Coefficient Variation 14.2 % (11.7-14.2); RDW Standard Deviation 44.4 fL (35.1-46.3); Red Blood Cell Count 4.67 M/mm3 (3.80-5.20); White Blood Cell Count 14.21 K/mm3 (4.00-11.30)
[2021-03-01 05:11] LABS: Alanine Aminotransfer (ALT/SGP 23 U/L (12-78); Albumin, Blood 3.8 g/dL (3.4-5.0); Albumin/Globulin Ratio 1.1 (0.8-1.8); Alk Phos 81 U/L (50-136); Anion Gap 10 mmol/L (6-16); Aspartate Aminotrans (AST/SGOT 15 U/L (12-37); Bilirubin, Total 0.6 mg/dL (0.1-1.0); Blood Urea Nitrogen 10 mg/dL (8-24); Bun/Creatinine Ratio 16.8 (12.0-20.0); CO2, Blood 23 mmol/L (21-32); Calcium, Blood 9.6 mg/dL (8.5-10.1); Chloride, Blood 102 mmol/L (98-108); Globulin, Blood 3.6 g/dL (2.2-4.0); Glomerular Filtration Rate >60 (60-); Glucose, Blood 183 mg/dL (70-99); Potassium, Blood 3.4 mmol/L (3.5-5.5); Sodium, Blood 135 mmol/L (136-145); Total Protein, Blood 7.4 g/dL (6.4-8.2)
[2021-03-02] MEDS ORDERED: DICY20 PO (05:47)
[2021-03-02] MEDS ORDERED: PROM25 PO (05:47)
[2021-03-02] MEDS ORDERED: PHENERGAN25 MG PR (05:50)
== END 2021-03-01 08:55 | disposition home or self-care (01) ==
LOC: ER 04:36
PROVIDERS: Emergency Medicine
DX: R10.32 Left lower quadrant pain (principal); I82.522 Chronic embolism and thrombosis of left iliac vein; Z98.890 Other specified postprocedural states; Z88.2 Allergy status to sulfonamides; Z79.899 Other long term (current) drug therapy; Z79.01 Long term (current) use of anticoagulants
CPT/HCPCS: 74177; 80047; 80053; 83605; 84484; 85014; 85025; 86850; 86900; 86901; 96374-59; 96375; 99284-25; J1170; J2405; J2550; J3010; Q9967

== ENCOUNTER 2021-03-02 04:01 | Emergency (ER) | payer OTHER ==
[~2021-03-02] VITALS: Ht 172.7 cm; Wt 79.4 kg
[2021-03-02 04:18] LABS: BASOPHILS ABSOLUTE AUTO 0.04 K/mm3 (0.00-0.23); BASOPHILS PERCENT AUTO 0 % (0-2); EOSINOPHILS ABSOLUTE AUTO 0.02 K/mm3 (0.00-0.68); EOSINOPHILS PERCENT AUTO 0 % (0-6); Hematocrit 38.5 % (33.0-51.0); Hemoglobin 12.9 g/dL (11.5-16.0); IMMATURE GRAN ABSOLUTE AUTO 0.05 K/mm3 (0.00-0.10); IMMATURE GRAN PERCENT AUTO 0 % (0-1); LYMPHOCYTES ABSOLUTE AUTO 2.17 K/mm3 (0.84-5.20); LYMPHOCYTES PERCENT AUTO 15 % (21-46); MONOCYTES ABSOLUTE AUTO 1.49 K/mm3 (0.16-1.47); MONOCYTES PERCENT AUTO 10 % (4-13); Mean Corpuscular HGB 29.1 pg (26.0-34.0); Mean Corpuscular HGB Conc 33.5 g/dL (31.5-36.5); Mean Corpuscular Volume 87 fL (80-100); Mean Platelet Volume 10.1 fL (9.1-12.4); NEUTROPHILS ABSOLUTE AUTO 11.03 K/mm3 (1.96-9.15); NEUTROPHILS PERCENT AUTO 75 % (41-73); Platelet Count 203 K/mm3 (150-400); RDW Coefficient Variation 14.1 % (11.7-14.2); RDW Standard Deviation 45.1 fL (35.1-46.3); Red Blood Cell Count 4.44 M/mm3 (3.80-5.20)
[2021-03-02 04:38] LABS: Alanine Aminotransfer (ALT/SGP 16 U/L (12-78); Albumin, Blood 3.5 g/dL (3.4-5.0); Albumin/Globulin Ratio 0.9 (0.8-1.8); Alk Phos 71 U/L (50-136); Anion Gap 8 mmol/L (6-16); Aspartate Aminotrans (AST/SGOT 12 U/L (12-37); Bilirubin, Total 0.7 mg/dL (0.1-1.0); Blood Urea Nitrogen 13 mg/dL (8-24); Bun/Creatinine Ratio 22.3 (12.0-20.0); CO2, Blood 24 mmol/L (21-32); Calcium, Blood 8.9 mg/dL (8.5-10.1); Chloride, Blood 105 mmol/L (98-108); Creatinine, Blood 0.58 mg/dL (0.40-1.00); Globulin, Blood 3.8 g/dL (2.2-4.0); Glomerular Filtration Rate >60 (60-); Glucose, Blood 129 mg/dL (70-99); Potassium, Blood 3.2 mmol/L (3.5-5.5); Sodium, Blood 137 mmol/L (136-145); Total Protein, Blood 7.3 g/dL (6.4-8.2); Troponin I <0.015 ng/mL (0.000-0.040)
[2021-03-02] MEDS ORDERED: PROM25 PO (05:47)
[2021-03-02] MEDS ORDERED: DICY20 PO (05:47)
[2021-03-02] MEDS ORDERED: PHENERGAN25 MG PR (05:50)
== END 2021-03-02 06:29 | disposition home or self-care (01) ==
LOC: ER 04:01
PROVIDERS: Emergency Medicine
DX: R11.2 Nausea with vomiting, unspecified (principal); R10.9 Unspecified abdominal pain; Z87.891 Personal history of nicotine dependence
CPT/HCPCS: 36415; 74022; 80053; 83690; 84484; 85025; 93005; 93010; 96374; 96375; 99284-25; J1170; J1200; J1630; J2550; J7030

== ENCOUNTER → 2021-05-08 | Outpatient (CLI) | payer OTHER ==
[~2021-05-08] MED LIST changes: +DICY20 PO; +PHENERGAN25 MG PR; +PROM25 PO
== END ==
LOC: LAB 11:52 → LAB SHORT 11:52
PROVIDERS: Family Medicine
DX: Z51.81 Encounter for therapeutic drug level monitoring (principal); Z79.899 Other long term (current) drug therapy
CPT/HCPCS: G0480

== ENCOUNTER → 2021-07-26 | Outpatient (CLI) | payer OTHER | LOC: LAB 18:46 → LAB SHORT 18:46 | DX: L08.9 Local infection of the skin and subcutaneous tissue, unspecified (principal); L81.4 Other melanin hyperpigmentation; Z71.89 Other specified counseling | CPT/HCPCS: 87070; 87205 ==

== ENCOUNTER → 2021-08-08 | Outpatient (CLI) | payer OTHER ==
[2021-08-13 12:08] LABS: CARBOXY-THC 3070 (.)
== END | disposition home or self-care (01) ==
LOC: LAB 12:26 → LAB SHORT 12:26
PROVIDERS: Family Medicine
DX: Z51.81 Encounter for therapeutic drug level monitoring (principal); Z79.899 Other long term (current) drug therapy
CPT/HCPCS: G0480

== ENCOUNTER 2021-08-21 10:25 | Day surgery (SDC) | payer OTHER ==
[~2021-08-21] VITALS: Ht 167.6 cm; Wt 73.0 kg
[~2021-08-21 10:25] MED LIST changes: +Acetaminophen650 M1 PO; +NARCAN4 M1; +VOLTAREN ARTHRI20 GM TOP
--- NOTE | 2021-08-21 18:08 | NUR ---
FOLLOWED PT BACK FROM PROCEDURE. HERE AT BEDSIDE
--- NOTE | 2021-08-21 18:36 | NUR ---
PT ALERT AND TALKING TO STAFF AND . DISCHARGE GONE OVER WITH PT AND , BOTH VERBALIZE UNDERSTANDING OF INSTRUCTIONS.
--- NOTE | 2021-08-21 18:50 | NUR ---
PT GETTING DRESSED PER SELF, R IJ SITE STABLE, L POP AND GROIN SITES STABLE. SALINE LOCK REMOVED WITH CATHETER INTACT.
--- NOTE | 2021-08-21 19:03 | NUR ---
PT TO PRIVATE VEHICLE PER W/C WITH ONE STAFF
== END 2021-08-21 23:07 | disposition home or self-care (01) ==
LOC: MHTC 10:25 → PCU 17:53 → MHTC 18:20
DX: I82.522 Chronic embolism and thrombosis of left iliac vein (principal); I82.512 Chronic embolism and thrombosis of left femoral vein; I83.892 Varicose veins of left lower extremity with other complications; E78.5 Hyperlipidemia, unspecified; M81.0 Age-related osteoporosis without current pathological fracture; M15.9 Polyosteoarthritis, unspecified; Z87.891 Personal history of nicotine dependence; Z79.01 Long term (current) use of anticoagulants; Z85.3 Personal history of malignant neoplasm of breast; Z88.2 Allergy status to sulfonamides; Z95.828 Presence of other vascular implants and grafts
CPT/HCPCS: 76937; 99152; 99153; C1769; C1887; C1894; J1644; J2250; J3010; J7030; Q9967

== ENCOUNTER → 2021-08-28 | Outpatient (CLI) | payer OTHER ==
[2021-08-28 19:58] LABS: U Amphetamine Screen Not Detected; U Barbituate Screen Not Detected; U Benzodiazapine Screen Not Detected; U Buprenorphine Screen Not Detected; U Cannabinoids Screen DETECTED; U Cocaine Screen Not Detected; U Methadone Screen Not Detected; U Methamphetamine Screen Not Detected; U Opiates Screen Not Detected; U Oxycodone Screen DETECTED; U Phencyclidine Screen Not Detected; U Propoxyphene Screen Not Detected
== END | disposition home or self-care (01) ==
LOC: LAB 16:42 → LAB SHORT 16:42
PROVIDERS: Family Medicine
DX: Z51.81 Encounter for therapeutic drug level monitoring (principal); Z79.899 Other long term (current) drug therapy

== ENCOUNTER → 2021-11-24 | Outpatient (CLI) | payer OTHER | LOC: LAB SHORT 13:27 | DX: L97.929 Non-pressure chronic ulcer of unspecified part of left lower leg with unspecified severity (principal) | CPT/HCPCS: 87070; 87075; 87077; 87185; 87186; 87205 ==

== ENCOUNTER 2021-12-01 00:10 | Day surgery (SDC) | payer OTHER | END 2021-12-01 22:55 | disposition home or self-care (01) | LOC: WOUND 00:10 | DX: L97.829 Non-pressure chronic ulcer of other part of left lower leg with unspecified severity (principal); I87.312 Chronic venous hypertension (idiopathic) with ulcer of left lower extremity; L03.116 Cellulitis of left lower limb; Z87.891 Personal history of nicotine dependence; Z88.2 Allergy status to sulfonamides | CPT/HCPCS: A9270; G0463 ==

== ENCOUNTER 2021-12-06 03:45 | Day surgery (SDC) | payer OTHER | END 2021-12-06 23:04 | disposition home or self-care (01) | LOC: WOUND 03:45 | DX: I87.312 Chronic venous hypertension (idiopathic) with ulcer of left lower extremity (principal); L97.822 Non-pressure chronic ulcer of other part of left lower leg with fat layer exposed; L03.116 Cellulitis of left lower limb; I82.522 Chronic embolism and thrombosis of left iliac vein; Z79.01 Long term (current) use of anticoagulants | CPT/HCPCS: A9270; G0463 ==

== ENCOUNTER 2021-12-18 01:21 | Day surgery (SDC) | payer OTHER | END 2021-12-18 23:41 | disposition home or self-care (01) | LOC: WOUND 01:21 | DX: I87.312 Chronic venous hypertension (idiopathic) with ulcer of left lower extremity (principal); L97.822 Non-pressure chronic ulcer of other part of left lower leg with fat layer exposed; L03.116 Cellulitis of left lower limb; Z79.01 Long term (current) use of anticoagulants | CPT/HCPCS: A9270 ==

== ENCOUNTER 2021-12-25 08:00 | Day surgery (SDC) | payer OTHER | END 2021-12-25 23:59 | disposition home or self-care (01) | LOC: WOUND 08:00 | DX: I87.312 Chronic venous hypertension (idiopathic) with ulcer of left lower extremity (principal); L97.822 Non-pressure chronic ulcer of other part of left lower leg with fat layer exposed; L03.116 Cellulitis of left lower limb; Z79.01 Long term (current) use of anticoagulants | CPT/HCPCS: A9270; G0463 ==

== ENCOUNTER 2022-01-01 14:59 | Day surgery (SDC) | payer OTHER | END 2022-01-01 23:57 | disposition home or self-care (01) | LOC: WOUND 14:59 | DX: I87.312 Chronic venous hypertension (idiopathic) with ulcer of left lower extremity (principal); L97.822 Non-pressure chronic ulcer of other part of left lower leg with fat layer exposed; L03.116 Cellulitis of left lower limb; I82.522 Chronic embolism and thrombosis of left iliac vein; Z79.01 Long term (current) use of anticoagulants | CPT/HCPCS: A9270 ==

== ENCOUNTER 2022-01-08 08:00 | Day surgery (SDC) | payer OTHER | END 2022-01-08 23:59 | disposition home or self-care (01) | LOC: WOUND 08:00 | DX: I87.312 Chronic venous hypertension (idiopathic) with ulcer of left lower extremity (principal); L97.822 Non-pressure chronic ulcer of other part of left lower leg with fat layer exposed; L03.116 Cellulitis of left lower limb; I82.522 Chronic embolism and thrombosis of left iliac vein; Z79.01 Long term (current) use of anticoagulants | CPT/HCPCS: G0463 ==

== ENCOUNTER 2022-01-16 02:10 | Day surgery (SDC) | payer OTHER | END 2022-01-16 23:31 | disposition home or self-care (01) | LOC: WOUND 02:10 | DX: L97.822 Non-pressure chronic ulcer of other part of left lower leg with fat layer exposed (principal) | CPT/HCPCS: A9270; G0463 ==

== ENCOUNTER 2022-01-23 01:02 | Day surgery (SDC) | payer OTHER | END 2022-01-23 23:49 | disposition home or self-care (01) | LOC: WOUND 01:02 | DX: I87.312 Chronic venous hypertension (idiopathic) with ulcer of left lower extremity (principal); L97.822 Non-pressure chronic ulcer of other part of left lower leg with fat layer exposed | CPT/HCPCS: A9270; G0463 ==

== ENCOUNTER 2022-01-30 01:27 | Day surgery (SDC) | payer OTHER | END 2022-01-30 23:24 | disposition home or self-care (01) | LOC: WOUND 01:27 | DX: I87.312 Chronic venous hypertension (idiopathic) with ulcer of left lower extremity (principal); L97.822 Non-pressure chronic ulcer of other part of left lower leg with fat layer exposed | CPT/HCPCS: A9270; G0463 ==

== ENCOUNTER 2022-02-20 08:00 | Day surgery (SDC) | payer OTHER | END 2022-02-20 23:59 | disposition home or self-care (01) | LOC: WOUND 08:00 | DX: I87.312 Chronic venous hypertension (idiopathic) with ulcer of left lower extremity (principal); L97.822 Non-pressure chronic ulcer of other part of left lower leg with fat layer exposed | CPT/HCPCS: A9270; G0463 ==

== ENCOUNTER 2022-03-13 02:00 | Day surgery (SDC) | payer OTHER | END 2022-03-13 22:58 | disposition home or self-care (01) | LOC: WOUND 02:00 | DX: I87.312 Chronic venous hypertension (idiopathic) with ulcer of left lower extremity (principal); L97.822 Non-pressure chronic ulcer of other part of left lower leg with fat layer exposed | CPT/HCPCS: A9270; G0463 ==

== ENCOUNTER 2022-04-10 05:10 | Day surgery (SDC) | payer OTHER | END 2022-04-10 23:56 | disposition home or self-care (01) | LOC: WOUND 05:10 | DX: I87.312 Chronic venous hypertension (idiopathic) with ulcer of left lower extremity (principal); L97.829 Non-pressure chronic ulcer of other part of left lower leg with unspecified severity; Z88.2 Allergy status to sulfonamides | CPT/HCPCS: A9270; G0463 ==

== ENCOUNTER 2022-08-05 23:15 | Emergency (ER) | payer OTHER ==
[~2022-08-05] VITALS: Ht 167.6 cm; Wt 72.6 kg
[2022-08-05 23:52] LABS: BASOPHILS ABSOLUTE AUTO 0.01 K/mm3 (0.00-0.23); BASOPHILS PERCENT AUTO 0 % (0-2); EOSINOPHILS PERCENT AUTO 0 % (0-6); Hematocrit 36.5 % (33.0-51.0); Hemoglobin 12.4 g/dL (11.5-16.0); IMMATURE GRAN ABSOLUTE AUTO 0.03 K/mm3 (0.00-0.10); IMMATURE GRAN PERCENT AUTO 1 % (0-1); LYMPHOCYTES ABSOLUTE AUTO 0.72 K/mm3 (0.84-5.20); LYMPHOCYTES PERCENT AUTO 13 % (21-46); MONOCYTES ABSOLUTE AUTO 0.65 K/mm3 (0.16-1.47); MONOCYTES PERCENT AUTO 12 % (4-13); Mean Corpuscular HGB 29.3 pg (26.0-34.0); Mean Corpuscular Volume 86 fL (80-100); Mean Platelet Volume 9.5 fL (9.1-12.4); NEUTROPHILS ABSOLUTE AUTO 4.14 K/mm3 (1.96-9.15); NEUTROPHILS PERCENT AUTO 75 % (41-73); Platelet Count 200 K/mm3 (150-400); RDW Coefficient Variation 14.7 % (11.7-14.2); RDW Standard Deviation 46.6 fL (35.1-46.3); Red Blood Cell Count 4.23 M/mm3 (3.80-5.20); White Blood Cell Count 5.55 K/mm3 (4.00-11.30)
[2022-08-06 00:06] LABS: Albumin, Blood 3.5 g/dL (3.4-5.0); Albumin/Globulin Ratio 0.9 (0.8-1.8); Bilirubin, Total 0.2 mg/dL (0.1-1.0); Bun/Creatinine Ratio 32.7 (12.0-20.0); Calcium, Blood 9.2 mg/dL (8.5-10.1); Creatinine, Blood 0.52 mg/dL (0.40-1.00); Globulin, Blood 3.8 g/dL (2.2-4.0); Potassium, Blood 3.4 mmol/L (3.5-5.5); Total Protein, Blood 7.3 g/dL (6.4-8.2)
[2022-08-06 00:50] LABS: Influenza A, PCR NEGATIVE (NEGATIVE); Influenza B, PCR NEGATIVE (NEGATIVE); Resp Syncytial Virus, PCR NEGATIVE (NEGATIVE)
[2022-08-06 01:20] LABS: SARS-Cov-2 (COVID-19) PCR, MMC POSITIVE (NEGATIVE)
[2022-08-06] MEDS ORDERED: ONDA4 PO (04:35)
[2022-08-06] MEDS ORDERED: PROM25 PO (04:35)
== END 2022-08-06 04:53 | disposition home or self-care (01) ==
LOC: ER 23:15
PROVIDERS: Emergency Medicine
DX: U07.1 COVID-19 (principal); Z87.891 Personal history of nicotine dependence
CPT/HCPCS: 0241U; 36415; 80053; 83690; 84484; 85025; A9270; J1790; J2405; J2550; J7030

== ENCOUNTER 2022-10-13 06:01 | Emergency (ER) | payer OTHER ==
[~2022-10-13] VITALS: Ht 167.6 cm; Wt 68.0 kg
[~2022-10-13 06:01] MED LIST changes: +ONDA4 PO
[2022-10-13 06:38] LABS: BASOPHILS ABSOLUTE AUTO 0.08 K/mm3 (0.00-0.23); BASOPHILS PERCENT AUTO 1 % (0-2); EOSINOPHILS ABSOLUTE AUTO 0.02 K/mm3 (0.00-0.68); EOSINOPHILS PERCENT AUTO 0 % (0-6); Hemoglobin 14.4 g/dL (11.5-16.0); IMMATURE GRAN ABSOLUTE AUTO 0.03 K/mm3 (0.00-0.10); IMMATURE GRAN PERCENT AUTO 0 % (0-1); LYMPHOCYTES ABSOLUTE AUTO 2.87 K/mm3 (0.84-5.20); LYMPHOCYTES PERCENT AUTO 29 % (21-46); MONOCYTES ABSOLUTE AUTO 1.08 K/mm3 (0.16-1.47); MONOCYTES PERCENT AUTO 11 % (4-13); Mean Corpuscular HGB 29.8 pg (26.0-34.0); Mean Corpuscular HGB Conc 34.3 g/dL (31.5-36.5); Mean Corpuscular Volume 87 fL (80-100); Mean Platelet Volume 9.3 fL (9.1-12.4); NEUTROPHILS ABSOLUTE AUTO 5.77 K/mm3 (1.96-9.15); NEUTROPHILS PERCENT AUTO 59 % (41-73); Platelet Count 280 K/mm3 (150-400); RDW Coefficient Variation 13.5 % (11.7-14.2); Red Blood Cell Count 4.83 M/mm3 (3.80-5.20); White Blood Cell Count 9.85 K/mm3 (4.00-11.30)
[2022-10-13 06:56] LABS: Albumin/Globulin Ratio 1.1 (0.8-1.8); Bilirubin, Total 0.7 mg/dL (0.1-1.0); Bun/Creatinine Ratio 40.3 (12.0-20.0); Calcium, Blood 9.6 mg/dL (8.5-10.1); Creatinine, Blood 0.5 mg/dL (0.40-1.00); Globulin, Blood 3.7 g/dL (2.2-4.0); Potassium, Blood 3.4 mmol/L (3.5-5.5); Total Protein, Blood 7.7 g/dL (6.4-8.2)
[2022-10-13] MEDS ORDERED: ONDA4ODT MM (08:40)
== END 2022-10-13 09:07 | disposition home or self-care (01) ==
LOC: ER 06:01
PROVIDERS: Emergency Medicine
DX: K29.00 Acute gastritis without bleeding (principal); Z88.2 Allergy status to sulfonamides; Z79.02 Long term (current) use of antithrombotics/antiplatelets; Z79.899 Other long term (current) drug therapy
CPT/HCPCS: 36415; 80053; 83690; 85025; A9270; J2550; J7030

== ENCOUNTER 2023-10-01 10:37 | Inpatient (IN) | payer OTHER ==
[~2023-10-01] VITALS: Ht 167.6 cm; Wt 78.0 kg
[~2023-10-01 10:37] MED LIST changes: +OMEP20ER PO; -OMEPRAZOLE20 MG PO; +ONDA4ODT MM
[2023-10-01 11:28] LABS: BASOPHILS ABSOLUTE AUTO 0.02 K/mm3 (0.00-0.23); BASOPHILS PERCENT AUTO 0 % (0-2); EOSINOPHILS PERCENT AUTO 0 % (0-6); Hemoglobin 14.5 g/dL (11.5-16.0); IMMATURE GRAN PERCENT AUTO 1 % (0-1); LYMPHOCYTES ABSOLUTE AUTO 1.85 K/mm3 (0.84-5.20); LYMPHOCYTES PERCENT AUTO 13 % (21-46); MONOCYTES ABSOLUTE AUTO 1.29 K/mm3 (0.16-1.47); MONOCYTES PERCENT AUTO 9 % (4-13); Mean Corpuscular HGB 27.5 pg (26.0-34.0); Mean Corpuscular HGB Conc 33.7 g/dL (31.5-36.5); Mean Corpuscular Volume 81 fL (80-100); Mean Platelet Volume 8.9 fL (9.1-12.4); NEUTROPHILS PERCENT AUTO 77 % (41-73); Platelet Count 376 K/mm3 (150-400); RDW Coefficient Variation 14.8 % (11.7-14.2); RDW Standard Deviation 43.4 fL (35.1-46.3); Red Blood Cell Count 5.28 M/mm3 (3.80-5.20); White Blood Cell Count 14.36 K/mm3 (4.00-11.30)
[2023-10-01 12:09] LABS: Albumin, Blood 4.2 g/dL (3.4-5.0); Albumin/Globulin Ratio 0.9 (0.8-1.8); Bilirubin, Total 0.5 mg/dL (0.1-1.0); Bun/Creatinine Ratio 30.4 (12.0-20.0); Calcium, Blood 10.2 mg/dL (8.5-10.1); Creatinine, Blood 0.49 mg/dL (0.40-1.00); Globulin, Blood 4.5 g/dL (2.2-4.0); Total Protein, Blood 8.7 g/dL (6.4-8.2)
[2023-10-01 12:35] LABS: Magnesium, Blood 2.1 mg/dL (1.6-2.4)
[2023-10-01] MEDS ORDERED: METO5A PO (18:43)
[2023-10-01 20:01] LABS: Source, Urine Straight Cath
[2023-10-01 20:07] LABS: Bilirubin, Urine Neg (Neg); Blood, Urine 4+ (Neg); Color, Urine Yellow (P-Yellow); Glucose Qualitative, Urine Neg (Neg); Ketones, Urine 4+ (Neg); Leukocyte Esterase, Urine Neg (Neg); Nitrite, Urine Neg (Neg); Protein, Urine 1+ (Neg); Specific Gravity, Urine 1.015 (1.003-1.022); Urobilinogen, Urine NORM (Normal)
[2023-10-01 20:16] LABS: Appearance, Urine Hazy (Clear)
[2023-10-01 20:17] LABS: Influenza A, PCR NEGATIVE (NEGATIVE); Influenza B, PCR NEGATIVE (NEGATIVE); Resp Syncytial Virus, PCR NEGATIVE (NEGATIVE); SARS-Cov-2 (COVID-19) PCR, MMC NEGATIVE (NEGATIVE)
[2023-10-01 20:18] LABS: Bacteria Few /hpf; Squamous Epithelial Cells Rare /hpf (Few); White Blood Cells, Urine 0-2 /hpf (0-5)
[2023-10-01 20:22] LABS: U Cannabinoids Screen DETECTED
[2023-10-01 20:23] LABS: U Amphetamine Screen Not Detected; U Barbituate Screen Not Detected; U Benzodiazapine Screen Not Detected; U Buprenorphine Screen Not Detected; U Cocaine Screen Not Detected; U Methadone Screen Not Detected; U Methamphetamine Screen Not Detected; U Opiates Screen Not Detected; U Oxycodone Screen Not Detected; U Phencyclidine Screen Not Detected
[2023-10-01 22:14] VITALS: BP 153/82
--- NOTE | 2023-10-01 23:06 | NUR ---
PATIENT IS A NEW ADMIT FROM THE ED. AXOX 4 AND SBA FROM GURNEY TO BED. IV K+CL INFUSING FROM THE ED. DENIES CHEST PAIN AND SOB. REPORTS N/V AND IV ZOFRAN GIVEN PER EMAR. ON ROOM AIR. REPORTS DAILY CANNABIS USE AND LAST USED 09/29/23. ORIENTED TO ROOM AND CALL LIGHT SYSTEM. PATIENT REPORTS WANTS TO REST/SLEEP AFTER ASSESSMENT WITH LIGHTS OFF. WCTM.
--- NOTE | 2023-10-02 04:17 | NUR ---
SHIFT SUMMARY PATIENT N/V X THREE. IV ZOFRAN AND IV REGLAN ALTERNATED. PATIENT REPORTS N/V SLIGHT IMPROVEMENT. PIV INTACT. LR INFUSING AT 75 mL/HR. DENIES CHEST PAIN AND SOB. ON ROOM AIR. VSS WITH LOW GRADE TEMP ON ADMIT 99.9. AREAS OF TONGUE BLACK. AXO X 4 AND SBA TO BSC. PUREWICK IN PLACE. COOPERATIVE WITH CARE. CALL LIGHT IN REACH. BED IN LOWEST POSITION. WILL CONTINUE TO MONITOR UNTIL DAY SHIFT NURSE ASSUMES CARE.
[2023-10-02 05:51] LABS: Hematocrit 37.2 % (33.0-51.0); Hemoglobin 12.2 g/dL (11.5-16.0); Mean Corpuscular HGB 26.5 pg (26.0-34.0); Mean Corpuscular HGB Conc 32.8 g/dL (31.5-36.5); Mean Corpuscular Volume 81 fL (80-100); Platelet Count 307 K/mm3 (150-400); RDW Coefficient Variation 15.1 % (11.7-14.2); RDW Standard Deviation 44.3 fL (35.1-46.3); White Blood Cell Count 10.86 K/mm3 (4.00-11.30)
[2023-10-02 06:28] LABS: Albumin, Blood 3.5 g/dL (3.4-5.0); Bilirubin, Total 0.5 mg/dL (0.1-1.0); Bun/Creatinine Ratio 20.9 (12.0-20.0); Calcium, Blood 9.7 mg/dL (8.5-10.1); Creatinine, Blood 0.48 mg/dL (0.40-1.00); Globulin, Blood 3.6 g/dL (2.2-4.0); Potassium, Blood 3.1 mmol/L (3.5-5.5); Total Protein, Blood 7.1 g/dL (6.4-8.2)
[2023-10-02 08:07] VITALS: BP 145/84
--- NOTE | 2023-10-02 17:42 | NUR ---
PT IS A/OX4, PLEASANT AND COOPERATIVE. THE PT IS UP TO THE [facility]. THE PT CONTINUED TO HAVE N/V FOR MOST OF THE AM. THIS AFTERNOON THE PT CONTINUES TO HAVE NAUSEA, HOWEVER STATES THAT SHE IS FEELING A LITTLE BETTER. THE PT WAS MEDICATED FOR NAUSEA T/O THE DAY. PT WAS MEDICATED WITH TYLENOL FOR HEADACHE THIS AM. PT APPEARS TO BE BREATHING EASILY AT REST. CALL LIGHT IN REACH.
[2023-10-02] MEDS ORDERED: FENOFIBRATE48 MG PO (19:28)
[2023-10-02 20:34] VITALS: BP 133/65
[2023-10-03 04:29] VITALS: BP 152/95
[2023-10-03 05:58] LABS: BASOPHILS ABSOLUTE AUTO 0.04 K/mm3 (0.00-0.23); BASOPHILS PERCENT AUTO 1 % (0-2); EOSINOPHILS ABSOLUTE AUTO 0.03 K/mm3 (0.00-0.68); EOSINOPHILS PERCENT AUTO 1 % (0-6); Hematocrit 36.3 % (33.0-51.0); Hemoglobin 11.9 g/dL (11.5-16.0); IMMATURE GRAN ABSOLUTE AUTO 0.03 K/mm3 (0.00-0.10); IMMATURE GRAN PERCENT AUTO 1 % (0-1); LYMPHOCYTES ABSOLUTE AUTO 2.62 K/mm3 (0.84-5.20); LYMPHOCYTES PERCENT AUTO 40 % (21-46); MONOCYTES ABSOLUTE AUTO 1.09 K/mm3 (0.16-1.47); MONOCYTES PERCENT AUTO 17 % (4-13); Mean Corpuscular HGB 27.1 pg (26.0-34.0); Mean Corpuscular HGB Conc 32.8 g/dL (31.5-36.5); Mean Corpuscular Volume 83 fL (80-100); Mean Platelet Volume 9.3 fL (9.1-12.4); NEUTROPHILS ABSOLUTE AUTO 2.67 K/mm3 (1.96-9.15); NEUTROPHILS PERCENT AUTO 41 % (41-73); Platelet Count 278 K/mm3 (150-400); RDW Coefficient Variation 14.9 % (11.7-14.2); RDW Standard Deviation 44.4 fL (35.1-46.3); Red Blood Cell Count 4.39 M/mm3 (3.80-5.20); White Blood Cell Count 6.48 K/mm3 (4.00-11.30)
[2023-10-03 06:13] LABS: Bun/Creatinine Ratio 17.7 (12.0-20.0); Calcium, Blood 9.6 mg/dL (8.5-10.1); Creatinine, Blood 0.51 mg/dL (0.40-1.00); Potassium, Blood 3.3 mmol/L (3.5-5.5)
--- NOTE | 2023-10-03 06:18 | NUR ---
SHIFT SUMMARY NOC PT A/O X 4. PLEASANT AND COOPERATIVE WITH CARE. PT HAD C/O OF N/V RIGHT AT SHIFT CHANGE AND MEDICATED WITH ANITEMETIC. PT HAD LOW GRADE FEVER OF 99.5F AND GIVEN TYLENOL. LR @ 75 ML/HR INFUSING. PT HAS BEEN ABLE TO TOLERATE ICE CHIPS WELL. PT HAD C/O OF ABD PAIN FROM DRY HEAVING. POTASSIUM 3.1 YESTERDAY AND REPLACEMENT GIVEN, AWAITING AM LABS FOR IMPROVEMENT. PT IS CURRENTLY RESTING WITH BED IN LOWEST POSITION, AND CALL LIGHT WITHIN REACH.
[2023-10-03 07:23] VITALS: BP 145/75
[2023-10-03 14:53] VITALS: BP 143/80
--- NOTE | 2023-10-03 16:05 | NUR ---
PT IS A/OX4, PLEASANT AND COOPERATIVE. THE PT IS UP TO THE [facility]. THE PT CONTINUES TO HAVE NAUSEA, HOWEVER HAS BEEN ABLE TO TAKE SOME MEDICATIONS AND SMALL BITES OF HER FULL LIQUID DIET. THE PT REPORTS FEELING BETTER TODAY COMPARED TO YESTERDAY. PT WAS UP TODAY AND TOOK A WARM SHOWER WHICH SHE REPORTED MADE HER FEEL SOME WHAT BETTER. CALL LIGHT IN REACH.
[2023-10-03 19:49] VITALS: BP 156/82
[2023-10-04 04:03] VITALS: BP 150/90
[2023-10-04 05:56] LABS: BASOPHILS ABSOLUTE AUTO 0.05 K/mm3 (0.00-0.23); BASOPHILS PERCENT AUTO 1 % (0-2); EOSINOPHILS ABSOLUTE AUTO 0.06 K/mm3 (0.00-0.68); EOSINOPHILS PERCENT AUTO 1 % (0-6); Hematocrit 36.3 % (33.0-51.0); Hemoglobin 11.8 g/dL (11.5-16.0); IMMATURE GRAN ABSOLUTE AUTO 0.05 K/mm3 (0.00-0.10); IMMATURE GRAN PERCENT AUTO 1 % (0-1); LYMPHOCYTES ABSOLUTE AUTO 2.02 K/mm3 (0.84-5.20); LYMPHOCYTES PERCENT AUTO 29 % (21-46); MONOCYTES ABSOLUTE AUTO 0.86 K/mm3 (0.16-1.47); MONOCYTES PERCENT AUTO 12 % (4-13); Mean Corpuscular HGB 27.1 pg (26.0-34.0); Mean Corpuscular HGB Conc 32.5 g/dL (31.5-36.5); Mean Corpuscular Volume 83 fL (80-100); Mean Platelet Volume 8.9 fL (9.1-12.4); NEUTROPHILS ABSOLUTE AUTO 3.97 K/mm3 (1.96-9.15); NEUTROPHILS PERCENT AUTO 57 % (41-73); Platelet Count 265 K/mm3 (150-400); RDW Coefficient Variation 14.9 % (11.7-14.2); RDW Standard Deviation 45.1 fL (35.1-46.3); Red Blood Cell Count 4.35 M/mm3 (3.80-5.20); White Blood Cell Count 7.01 K/mm3 (4.00-11.30)
--- NOTE | 2023-10-04 05:57 | NUR ---
SHIFT SUMMARY NOC PT A/O X 4. PLEASANT AND COOPERATIVE WITH CARE. PT NAUSEA HAS BEEN IMPROVED AND MEDICATED X 3 FOR N/V. PT REQUESTED TYLENOL PM FOR SLEEP AND ORDER OBTAINED FOR DOSE QD @ BEDTIME. DIET IS ADVANCE TOLERATED AND PT WAS ABLE TO EAT MASHED POTATOES WITH GRAVY FOR DAY RN FOR DINNER AND WAS ABLE TO KEEP IT DOWN. INFUSION OF LR @ 75 ML/HR IS INFUSING. PT POSSIBLE DISCHARGE HOME TODAY, AWAITING POTASSIUM IMPROVEMENT. PT IS CURRENTLY RESTING WITH BED IN LOWEST POSITION, AND CALL LIGHT WITHIN REACH.
[2023-10-04 06:13] LABS: Bun/Creatinine Ratio 14.5 (12.0-20.0); Calcium, Blood 8.6 mg/dL (8.5-10.1); Creatinine, Blood 0.42 mg/dL (0.40-1.00); Potassium, Blood 3.3 mmol/L (3.5-5.5)
[2023-10-04 07:38] VITALS: BP 151/89
[2023-10-04] MEDS ORDERED: PANT40 PO (14:55)
[2023-10-04] MEDS ORDERED: ONDA4ODT MM (14:56)
--- NOTE | 2023-10-04 16:22 | NUR ---
SHIFT/DISCHARGE SUMMARY: PATIENT A/OX4, CALM, PLEASANT AND COOPERATIVE c CARE. PATIENT USES CALL LIGHT APPROPRIATELY AND ABLE TO MAKE NEEDS KNOWN. PATIENT REPORTS NAUSEA AT BEGINNING OF SHIFT, MEDICATED X1 c NAUSEA PRN MEDS c GOOD EFFECT. PATIENT WAS ON FL DIET FOR BREAKFAST, TOLERATED WELL. PATIENT WAS PLACED ON REGULAR DIET FOR LUNCH, ATE 50%. PATIENT DENIES N/V, PAIN/TENDERNESS TO ABDOMEN AFTER EATING. PATIENT RECEIVED SCHEDULED MEDS PER EMAR. VITAL SIGNS REVIEWED. PATIENT CONTINENCE OF BLADDER, USES BSC AND BACK IN BED INDEPENDENTLY. PIV TO R FOREARM. DC'D. PATIENT DISCHARGE HOME. DISCHARGE INSTRUCTION PACKET GIVEN TO PATIENT. EDUCATE PATIENT REGARDING ADMITTING DX'S OF INTRACTABLE N/V, S/S, TX, SELF CARE, NEW PRESCRIBED MEDS AND TO FOLLOW UP c PCP. PATIENT VERBALIZED UNDERSTANDING AND NO FURTHER QUESTIONS. RX WAS FAXED TO PATIENT PREFERRED PHARMACY ([facility]). PATIENT STILL IN ROOM AT THIS TIME, AWAITING FOR SPOUSE TO PICK PATIENT UP. PER PATIENT "SPOUSE WILL BE HERE AT 1700 TO PICK HER UP."
--- NOTE | 2023-10-04 18:22 | NUR ---
ADDITIONAL NOTE: ALL PATIENT PERSONAL BELONGINGS WERE SENT HOME c THE PATIENT. PATIENT LEFT THE ROOM AT 1822 AND TRANSPORTED VIA WHEELCHAIR [facility] STAFF NEL TO PATIENT ENTRANCE.
== END 2023-10-04 18:25 | disposition home or self-care (01) | DRG 392 ==
LOC: ER 10:37 → ERHOLD 10:38 → MEDS 10:38
PROVIDERS: Internal Medicine; Nurse Practitioner Acute Care; Physician Assistant; ADMIT Internal Medicine
DX: K20.90 Esophagitis, unspecified without bleeding (principal); E87.1 Hypo-osmolality and hyponatremia; R65.10 Systemic inflammatory response syndrome (SIRS) of non-infectious origin without acute organ dysfunction; E78.5 Hyperlipidemia, unspecified; F32.A Depression, unspecified; F12.90 Cannabis use, unspecified, uncomplicated; E87.6 Hypokalemia; K21.9 Gastro-esophageal reflux disease without esophagitis; M51.9 Unspecified thoracic, thoracolumbar and lumbosacral intervertebral disc disorder; Z11.52 Encounter for screening for COVID-19; Z28.21 Immunization not carried out because of patient refusal; Z86.718 Personal history of other venous thrombosis and embolism; Z85.3 Personal history of malignant neoplasm of breast; Z87.891 Personal history of nicotine dependence
CPT/HCPCS: 0241U; 36415; 74160; 80048; 80053; 81001; 83690; 83735; 85025; 85027; 96361; 96365; 96366; 96372-59; 96375; 96376; 99285-25; A9270; C9113; G0378; J0780; J1790; J2405; J2765; J3480; J7030; J7050; J7120; Q9967

== ENCOUNTER → 2023-11-25 | Outpatient (CLI) | payer OTHER ==
[~2023-11-25] MED LIST changes: +FENOFIBRATE48 MG PO; +METO5A PO; +PANT40 PO
== END ==
LOC: LAB SHORT 15:26
DX: R10.9 Unspecified abdominal pain (principal)
CPT/HCPCS: 87086

== ENCOUNTER 2025-01-05 19:22 | Emergency (ER) | payer OTHER ==
[~2025-01-05] VITALS: Ht 167.6 cm; Wt 67.6 kg
[2025-01-05 19:43] VITALS: BP 150/94
== END 2025-01-05 19:57 | disposition home or self-care (01) ==
LOC: ER 19:22
DX: T16.2XXA Foreign body in left ear, initial encounter (principal); Z88.2 Allergy status to sulfonamides; Z88.5 Allergy status to narcotic agent; Z79.899 Other long term (current) drug therapy; Z79.890 Hormone replacement therapy; Z79.1 Long term (current) use of non-steroidal anti-inflammatories (NSAID); Z79.2 Long term (current) use of antibiotics; Z79.02 Long term (current) use of antithrombotics/antiplatelets; Z79.52 Long term (current) use of systemic steroids
CPT/HCPCS: 69200; 99282-25

== ENCOUNTER → 2025-06-03 | Outpatient (CLI) | payer OTHER ==
[2025-06-03 16:24] LABS: BASOPHILS ABSOLUTE AUTO 0.06 K/mm3 (0.00-0.23); BASOPHILS PERCENT AUTO 1 % (0-2); EOSINOPHILS ABSOLUTE AUTO 0.10 K/mm3 (0.00-0.68); EOSINOPHILS PERCENT AUTO 1 % (0-6); Hematocrit 37.4 % (33.0-51.0); Hemoglobin 12.6 g/dL (11.5-16.0); IMMATURE GRAN ABSOLUTE AUTO 0.02 K/mm3 (0.00-0.10); IMMATURE GRAN PERCENT AUTO 0 % (0-1); LYMPHOCYTES ABSOLUTE AUTO 2.48 K/mm3 (0.84-5.20); LYMPHOCYTES PERCENT AUTO 36 % (21-46); MONOCYTES ABSOLUTE AUTO 0.65 K/mm3 (0.16-1.47); MONOCYTES PERCENT AUTO 9 % (4-13); Mean Corpuscular HGB Conc 33.7 g/dL (31.5-36.5); Mean Corpuscular Volume 90 fL (80-100); NEUTROPHILS ABSOLUTE AUTO 3.59 K/mm3 (1.96-9.15); NEUTROPHILS PERCENT AUTO 52 % (41-73); NRBC ABSOLUTE 0.00 K/mm3 (0.00-0.02); NRBC Auto 0.0 /100 WBC (0.0-0.2); Platelet Count 257 K/mm3 (150-400); RDW Coefficient Variation 14.0 % (11.7-14.2); RDW Standard Deviation 45.2 fL (35.1-46.3)
[2025-06-03 17:11] LABS: Alanine Aminotransfer (ALT/SGP 20.0 U/L (12-78); Albumin, Blood 4.1 g/dL (3.4-5.0); Albumin/Globulin Ratio 1.2 (0.8-1.8); Anion Gap 6.0 mmol/L (3-11); Aspartate Aminotrans (AST/SGOT 14.0 U/L (12-37); Bilirubin, Total 0.4 mg/dL (0.1-1.0); Blood Urea Nitrogen 12.0 mg/dL (8-24); CO2, Blood 25.0 mmol/L (21-32); Calcium, Blood 9.4 mg/dL (8.5-10.1); Chloride, Blood 107.0 mmol/L (98-108); Creatinine, Blood 0.57 mg/dL (0.40-1.00); Globulin, Blood 3.3 g/dL (2.2-4.0); Glucose, Blood 91.0 mg/dL (70-99); Potassium, Blood 3.9 mmol/L (3.5-5.5); Sodium, Blood 134.0 mmol/L (136-145); Total Protein, Blood 7.4 g/dL (6.4-8.2)
== END ==
LOC: LAB 16:19 → LAB SHORT 16:19
DX: R10.11 Right upper quadrant pain (principal)
CPT/HCPCS: 80053; 83690; 85025

== ENCOUNTER 2025-06-06 18:12 | Emergency (ER) | payer MEDICARE, OTHER ==
[~2025-06-06] VITALS: Ht 167.6 cm; Wt 67.1 kg
[2025-06-06 18:18] VITALS: BP 129/71
== END 2025-06-06 18:28 | disposition home or self-care (01) ==
LOC: ER 18:12
DX: T16.2XXA Foreign body in left ear, initial encounter (principal); Z88.2 Allergy status to sulfonamides; Z79.01 Long term (current) use of anticoagulants; Z79.899 Other long term (current) drug therapy; W44.G1XA Audio device entering into or through a natural orifice, initial encounter
CPT/HCPCS: 69200; 99282-25